=== PATIENT | female | born 1950 | race Caucasian/White ===

== ENCOUNTER 2017-05-30 05:28 | Day surgery (SDC) | payer OTHER ==
[~2017-05-30] VITALS: Ht 157.5 cm; Wt 96.0 kg
[~2017-05-30 05:28] MED LIST: CRESTOR5 MG PO; GLUCOPHAGE500 MG PO; LASIX40 MG PO; PROTONIX40 MG PO; TRADJENTA5 MG PO
[2017-05-30 07:03] VITALS: BP 148/80
[2017-05-30 07:28] LABS: POINT-OF-CARE METER ID UU13113694
[2017-05-30] MEDS ORDERED: MOTRIN800 MG PO (07:40)
[2017-05-30 09:20] VITALS: BP 187/84
[2017-05-30 10:09] VITALS: BP 163/59
== END 2017-05-30 10:27 | disposition home or self-care (01) ==
LOC: SDC
PROVIDERS: Obstetrics & Gynecology
DX: N85.02 Endometrial intraepithelial neoplasia [EIN] (principal); I10 Essential (primary) hypertension; E11.9 Type 2 diabetes mellitus without complications; E78.00 Pure hypercholesterolemia, unspecified; K21.9 Gastro-esophageal reflux disease without esophagitis; Z79.84 Long term (current) use of oral hypoglycemic drugs; Z82.49 Family history of ischemic heart disease and other diseases of the circulatory system; Z83.3 Family history of diabetes mellitus; Z83.2 Family history of diseases of the blood and blood-forming organs and certain disorders involving the immune mechanism
CPT/HCPCS: 82948; 86900; 86901; 88305; J2250; J2405; J3010; J7120; Q0175

== ENCOUNTER 2017-08-28 21:54 | Inpatient (IN) | payer OTHER ==
[~2017-08-28] VITALS: Ht 154.9 cm; Wt 104.9 kg
[~2017-08-28 21:54] MED LIST changes: +MOTRIN800 MG PO
[2017-08-29 10:40] LABS: POINT-OF-CARE METER ID UU14174212
[2017-08-29 10:55] VITALS: BP 156/86
[2017-08-29 15:28] LABS: POINT-OF-CARE METER ID UU13113675
[2017-08-29 17:32] VITALS: BP 175/70
[2017-08-29 19:25] LABS: HEMATOCRIT 38.2 % (36.0-46.0); MCH 35.4 PG (29.0-34.0); MCHC 35.1 G/DL (30.0-36.0); MCV 101.1 FL (83-99); MEAN PLAT.VOLUME 10.2 uM^3 (9.5-12.4); PLATELET COUNT 322 K/uL (156-360); RBC DIS.WIDTH-CV 13.6 % (11.8-14.6); RBC DIS.WIDTH-SD 50.8 % (39-53); RED BLOOD COUNT 3.78 M/uL (3.80-5.20); WHITE BLOOD COUNT 12.8 K/uL (4.1-10.2)
[2017-08-29 19:47] LABS: ANION GAP 8 MEQ/L (2-14); CHLORIDE 105 MEQ/L (99-109); GFR ESTIMATE (CALCULATED) > 59 mL/min/; GLUCOSE 205 mg/dL (70-99); POTASSIUM 4.7 MEQ/L (3.7-5.4); SAMPLE HEMOLYSIS CHECK 0; SAMPLE ICTERIC CHECK 0; SAMPLE LIPEMIA CHECK 0; SODIUM 136 MEQ/L (136-147); UREA NITROGEN (BUN) 14 mg/dL (9-23)
[2017-08-29 19:54] VITALS: BP 166/78
[2017-08-29 22:00] LABS: POINT-OF-CARE METER ID UU14208750
[2017-08-30] VITALS (7 sets, daily range): BP systolic 126–169; BP diastolic 58–75
[2017-08-30 05:32] LABS: POINT-OF-CARE METER ID UU14208750
[2017-08-30 06:37] LABS: HEMATOCRIT 36.7 % (36.0-46.0); MCH 34.9 PG (29.0-34.0); MCHC 34.3 G/DL (30.0-36.0); MCV 101.7 FL (83-99); MEAN PLAT.VOLUME 10.8 uM^3 (9.5-12.4); PLATELET COUNT 310 K/uL (156-360); RBC DIS.WIDTH-CV 13.6 % (11.8-14.6); RBC DIS.WIDTH-SD 50.7 % (39-53); RED BLOOD COUNT 3.61 M/uL (3.80-5.20); WHITE BLOOD COUNT 9.8 K/uL (4.1-10.2)
[2017-08-30 07:00] LABS: ANION GAP 9 MEQ/L (2-14); CHLORIDE 101 MEQ/L (99-109); GFR ESTIMATE (CALCULATED) > 59 mL/min/; GLUCOSE 154 mg/dL (70-99); POTASSIUM 4.5 MEQ/L (3.7-5.4); SAMPLE HEMOLYSIS CHECK 0; SAMPLE ICTERIC CHECK 0; SAMPLE LIPEMIA CHECK 0; SODIUM 138 MEQ/L (136-147); UREA NITROGEN (BUN) 10 mg/dL (9-23)
[2017-08-30 11:53] LABS: POINT-OF-CARE METER ID UU14208750
[2017-08-30 16:50] LABS: POINT-OF-CARE METER ID UU14208750
[2017-08-30 21:38] LABS: POINT-OF-CARE METER ID UU14208750
[2017-08-31 03:56] VITALS: BP 145/60
[2017-08-31 06:40] LABS: POINT-OF-CARE METER ID UU14208750
[2017-08-31 07:10] VITALS: BP 182/80
[2017-08-31 07:17] LABS: HEMATOCRIT 34.8 % (36.0-46.0); MCH 35.1 PG (29.0-34.0); MCHC 34.8 G/DL (30.0-36.0); MCV 100.9 FL (83-99); MEAN PLAT.VOLUME 10.7 uM^3 (9.5-12.4); PLATELET COUNT 269 K/uL (156-360); RBC DIS.WIDTH-CV 13.5 % (11.8-14.6); RBC DIS.WIDTH-SD 49.8 % (39-53); RED BLOOD COUNT 3.45 M/uL (3.80-5.20); WHITE BLOOD COUNT 10.6 K/uL (4.1-10.2)
[2017-08-31 07:38] LABS: ANION GAP 7 MEQ/L (2-14); CHLORIDE 102 MEQ/L (99-109); GFR ESTIMATE (CALCULATED) > 59 mL/min/; GLUCOSE 171 mg/dL (70-99); SAMPLE HEMOLYSIS CHECK 0; SAMPLE ICTERIC CHECK 0; SAMPLE LIPEMIA CHECK 0; SODIUM 137 MEQ/L (136-147); UREA NITROGEN (BUN) 9 mg/dL (9-23)
[2017-08-31] MEDS ORDERED: TRAMADOL HCL50 MG PO (10:56)
== END 2017-08-31 12:10 | disposition home or self-care (01) | DRG 740 ==
LOC: 2SOUTH → ENRESERV 21:54 → 2SOUTH 08-29 09:02 → 2EASTP 08-29 10:01 → 2SOUTH 08-29 10:01 → SDC 08-29 11:04 → EDSTATUS 08-29 11:04 → 2SOUTH 08-29 11:08 → ENRESERV 08-29 15:37 → 2SOUTH 08-29 15:42 → 2EASTP 08-29 16:03 → 2SOUTH 08-29 16:28 → ENRESERV 08-29 16:28 → 2EASTP 08-29 17:10
PROVIDERS: Obstetrics & Gynecology Gynecologic Oncology
DX: C54.1 Malignant neoplasm of endometrium (principal); E11.9 Type 2 diabetes mellitus without complications; K21.9 Gastro-esophageal reflux disease without esophagitis; I10 Essential (primary) hypertension; E78.5 Hyperlipidemia, unspecified; E66.3 Overweight; Z68.41 Body mass index [BMI] 40.0-44.9, adult; Z23 Encounter for immunization
CPT/HCPCS: 36415; 80048; 82948; 85027; 86850; 86900; 86901; 86920; 88305; 88309; J0131; J0330; J0690; J1100; J1170; J1650; J1815; J1885; J2405; J2710; J2765; J3010; J7120